=== PATIENT | female | born 1930 | race Caucasian/White ===

== ENCOUNTER 2016-04-10 15:45 | Emergency (ER) | payer MEDICARE, OTHER ==
[~2016-04-10] VITALS: Ht 157.5 cm; Wt 50.1 kg
[2016-04-10] MEDS ORDERED: SODIUM CHLORIDE FLUSH 3 ML SYR IV PRN (16:25)
[2016-04-10] MEDS ORDERED: SODIUM CHLORIDE FLUSH 10 ML SYR IV PRN (16:25)
[2016-04-10] MEDS ORDERED: ASPIRIN 81 MG CHEW (CHILDREN'S ASA) PO ONE (16:25)
[2016-04-10] MEDS ORDERED: SODIUM CHLORIDE 250 ML IV PRN (16:25)
[2016-04-10 16:50] LABS: BASOPHILS % (AUTO) 0 % (0-2); EOSINOPHILS % (AUTO) 0 % (0-4); LYMPHOCYTES # (AUTO) 0.7 X10^3; MEAN CORPUSCULAR HGB CONC 34.3 g/dL (31.0-37.0); MEAN CORPUSCULAR VOLUME 96 FL (80-100); MEAN PLATELET VOLUME 9.8 FL (6.0-9.5); MONOCYTES # (AUTO) 0.9 X10^3; MONOCYTES % (AUTO) 8 % (3-11); NEUTROPHILS # (AUTO) 9.3 X10^3; NEUTROPHILS % (AUTO) 85 % (51-67); PLATELET COUNT 215 10^3uL (150-450); WHITE BLOOD COUNT 10.96 10^3uL (4.0-11.0)
[2016-04-10 17:03] LABS: ALBUMIN 4.1 g/dL (3.4-5.0); ALKALINE PHOSPHATASE 125 U/L (38-126); ANION GAP 15.2 MEQ/L (3-15); BUN/CREATININE RATIO 21 (10-20); CALCULATED IONIZED CALCIUM 4.2 mg/dL (3.8-4.6); CREATINE KINASE 61 U/L (30-135)
--- NOTE | 2016-04-10 17:39 | NUR ---
This nurse contacting Dr. Becerril via [phone]
--- NOTE | 2016-04-10 17:45 | NUR ---
[employer] accepts pt for transfer to [facility] for dx of Chest Pain R/O ACS.
[2016-04-10 18:21] VITALS: BP 145/103
== END 2016-04-10 18:34 | disposition short-term general hospital (02) ==
LOC: EDUNIT# 15:45 → ED 15:49
DX: R07.89 Other chest pain (principal); Z95.818 Presence of other cardiac implants and grafts; I48.91 Unspecified atrial fibrillation; I10 Essential (primary) hypertension
CPT/HCPCS: 36415; 71010; 80053; 80162; 82550; 82553; 83735; 83880; 84484; 85025; 85610; 85730; 93005; 99285; A9270; J7050; 93010; 99284

== ENCOUNTER → 2016-04-10 | Outpatient (CLI) | payer MEDICARE, OTHER | LOC: EMS 18:30 | PROVIDERS: ATTEND Family Medicine | DX: R07.89 Other chest pain (principal) ==

== ENCOUNTER 2016-07-04 12:08 | Emergency (ER) | payer MEDICARE, OTHER ==
[~2016-07-04] VITALS: Ht 157.5 cm; Wt 42.0 kg
[~2016-07-04 12:08] MED LIST changes: -CEPH-507 PO; -MIRT15TA98 PO
[2016-07-04] MEDS ORDERED: MIRT15TA98 PO (12:26)
[2016-07-04] MEDS ORDERED: ceFAZolin 1000 MG (ANCEF) VIAL IM ONE (12:45)
[2016-07-04] MEDS ORDERED: LIDOCAINE 1% (XYLOCAINE) 20 ML VIAL ONE (12:49)
[2016-07-04] MEDS ORDERED: WATER (STERILE) FOR INJECTION 10 ML ONE (12:50)
[2016-07-04] MEDS ORDERED: LIDOCAINE 1% (XYLOCAINE) 20 ML VIAL INJ ONE (12:50)
[2016-07-04] MEDS ORDERED: CEPH-507 PO (13:00)
[2016-07-04 13:10] VITALS: BP 163/104
== END 2016-07-04 13:15 | disposition home or self-care (01) ==
LOC: ED 12:10
DX: L03.113 Cellulitis of right upper limb (principal)
CPT/HCPCS: 96372; 99282; J0690

== ENCOUNTER → 2016-07-04 | Outpatient (CLI) | payer MEDICARE, OTHER ==
[~2016-07-04] MED LIST: ATOR20TA54 PO; CEPH-507 PO; DIGO125T18 PO; DILT360C27 PO; MIRT15TA98 PO; RIVA15TA2 PO; SERT25TA69 PO
[2016-07-04 12:12] VITALS: BP 148/98
--- NOTE | 2016-07-04 12:12 | Urgent Care T Sheet Gen (E) ---
Intake General Temperature (Fahrenheit): 97.5 Pulse: 113 Blood Pressure Systolic: 148 Blood Pressure Diastolic: 98 Respirations: 19 SPO2: 98 Description of Symptoms 85 year old presents accompanied by family. State she has an area of skin cancer on her right hand that has become red, warm, painful and draining. Source: Family, Patient History of Present Illness Onset & Duration: Days (1) Timing: Worse Allergies: Coded Allergies: No Known Drug Allergies (Unverified , 04/10/16) Home Meds Reported Medications Sertraline HCl 25 Mg Tablet1 Tab PO DAILY 04/10/16 Diltiazem HCl (Diltiazem ER)360 Mg Cap.er.24h1 Tab PO DAILY 04/10/16 Rivaroxaban (Xarelto)15 Mg Tablet1 Tab PO DAILY 04/10/16 Atorvastatin Calcium 20 Mg Tablet1 Tab PO DAILY 04/10/16 Digoxin (Digox)125 Mcg Tablet1 Tab PO DAILY 04/10/16 Respiratory Constitutional Symptoms: No syptoms reported Skin: Other (right hand red, draining, warm, painful) All Other Systems Reviewed Remaining Systems: All other systems reviewed with negative findings Past [id number]-[id number] Hx Patient's Social History Alcohol Use: Occasionally Uses Smoking Status: Never smoker Surgeries/Hospitalizations Hospitalization/Surgery Hx: Quadruple bypass in 1993 Bilat Cataract Surgeries Partial Hyst with Appy Tonsillectomy Respiratory Respiratory History: None Cardiovascular Cardiovascular History: Hypertension, Chest Pain, Arrhythmia, Hypercholesterolemia Comment: [facility] nursing home Neuro/Muscular Comment: Shingles Reproductive System Sexually Transmitted Diseases: No Gastrointestinal GI/Endocrine History: Anemia, Constipation Diabetes Diabetes: No HEENT Impaired Vision: Glasses Hearing Impaired: Hard of Hearing Psychosocial Behavior Disorders: None Physical Exam Physical Exam General Appearance: WD/WN Mild distress Skin Exam: Other (right hand with abscess, hand with erythema and edema and redness is streaking up her arm, warm) Departure Urgent Care Impression Impression: Primary Impression: Abscess of hand Additional Impression: Tachycardia Departure Departed Disposition: To [facility] ED Condition: Stable Referrals: Kiet Díaz (PCP) Additional Instructions: Discussed with patient that given the appearance, her elevated BP, and tachycardia, would recommend going ED for blood work and I and D. Offered to perform I and D and recheck VS. Family and pt agree that ED would be best given her age and presentation. Daughter will drive pt immediately to ED. Understand risk of not going by EMS and accept risks. End of report . ELENA FERNÁNDEZ [employer] July 04, 2016 12:12
== END ==
LOC: MHUC 11:52
PROVIDERS: ATTEND Nurse Practitioner Family
DX: L02.511 Cutaneous abscess of right hand (principal); R00.0 Tachycardia, unspecified